=== PATIENT | male | born 1995 ===

== ENCOUNTER 2021-09-15 14:50 | Emergency (ER) | payer MEDICAID ==
[~2021-09-15] VITALS: Ht 175.3 cm; Wt 81.6 kg
[2021-09-15 16:12] VITALS: BP 123/72
== END 2021-09-15 17:28 | disposition home or self-care (01) ==
LOC: ER 14:50
DX: J01.90 Acute sinusitis, unspecified (principal); Z88.0 Allergy status to penicillin; Z88.1 Allergy status to other antibiotic agents

== ENCOUNTER 2021-10-19 16:18 | Emergency (ER) | payer MEDICAID, OTHER ==
[~2021-10-19] VITALS: Ht 175.3 cm; Wt 77.1 kg
[2021-10-19] MEDS ORDERED: SODIUM CHLORIDE 0.9% 1,000 ML IV ONE (17:00)
[2021-10-19] MEDS ORDERED: MORPHINE SULFATE 4 MG/ML SYR/VIAL IV ONE (17:00)
[2021-10-19] MEDS ORDERED: ONDANSETRON HCL 4 MG/2 ML VIAL IV ONE (17:00)
[2021-10-19 17:54] VITALS: BP 140/89
[2021-10-19] MEDS ORDERED: HYDR-4902 PO (18:08)
[2021-10-19] MEDS ORDERED: TETANUS-DIPTH-ACEL PERTUSSIS 0.5ML SYR Tdap IM ONE (18:15)
[2021-10-19] MEDS ORDERED: SILVER SULFADIAZINE 1 % TOPICAL CREAM 50GM TOP ONE (18:15)
== END 2021-10-19 19:25 | disposition home or self-care (01) ==
LOC: ER 16:18
DX: T25.422A Corrosion of unspecified degree of left foot, initial encounter (principal); T23.402A Corrosion of unspecified degree of left hand, unspecified site, initial encounter; T23.401A Corrosion of unspecified degree of right hand, unspecified site, initial encounter; Y93.89 Activity, other specified; Y92.89 Other specified places as the place of occurrence of the external cause; Y99.8 Other external cause status; Z88.0 Allergy status to penicillin; Z88.1 Allergy status to other antibiotic agents
CPT/HCPCS: 90471; 90715; 96361; 96374; 96375; 99284; J2270; J7030